=== PATIENT | female | born 1960 | race African-American/Black ===

== ENCOUNTER 2017-10-02 19:35 | Emergency (ER) | payer MEDICAID ==
[~2017-10-02] VITALS: Ht 165.1 cm; Wt 139.0 kg
[2017-10-03] MEDS ORDERED: ONDANSETRON 4MG ODT PO NR
[2017-10-03] MEDS ORDERED: KETOROLAC 30MG/ML VIAL IM NR
[2017-10-03 00:37] VITALS: BP 131/73
== END 2017-10-03 00:32 | disposition home or self-care (01) ==
LOC: ER 19:35
DX: S83.91XA Sprain of unspecified site of right knee, initial encounter (principal); E11.9 Type 2 diabetes mellitus without complications; E66.01 Morbid (severe) obesity due to excess calories; Z68.43 Body mass index [BMI] 50.0-59.9, adult; W01.0XXA Fall on same level from slipping, tripping and stumbling without subsequent striking against object, initial encounter; Y93.89 Activity, other specified; Y92.89 Other specified places as the place of occurrence of the external cause; Y99.8 Other external cause status
CPT/HCPCS: 73562; 96372; 99284; J1885; L1830; Q0162

== ENCOUNTER 2018-10-19 13:04 | Emergency (ER) | payer MEDICARE, MEDICAID ==
[~2018-10-19] VITALS: Ht 175.3 cm; Wt 142.0 kg
[2018-10-19] MEDS ORDERED: ONDANSETRON 4MG ODT PO ONE (15:15)
[2018-10-19] MEDS ORDERED: HYDROCODONE/ACETAMINOPHEN 5/325MG TABLET PO ONE (15:15)
[2018-10-19] MEDS ORDERED: KETOROLAC 60MG/2ML VIAL IM ONE (15:15)
[2018-10-19 17:40] VITALS: BP 168/70
== END 2018-10-19 18:00 | disposition home or self-care (01) ==
LOC: ER 13:04
DX: M25.561 Pain in right knee (principal); M79.651 Pain in right thigh; M54.30 Sciatica, unspecified side; E11.9 Type 2 diabetes mellitus without complications
CPT/HCPCS: 73562; 93971; 96372; 99284; J1885; Q0162; L1830

== ENCOUNTER 2021-12-31 22:18 | Emergency (ER) | payer MEDICARE, MEDICAID ==
[~2021-12-31] VITALS: Ht 172.7 cm; Wt 96.0 kg
[2021-12-31] MEDS ORDERED: ONDANSETRON 4MG ODT PO STA (23:48)
[2021-12-31] MEDS ORDERED: ACETAMINOPHEN WITH CODEINE 300/30MG TABLET PO STA (23:48)
[2022-01-01 00:51] LABS: BASOPHILS % 0.4 % (0.0-2.0); EOSINOPHILS % 0.5 % (0.0-5.0); HEMATOCRIT. 37.9 % (36.0-48.0); HEMOGLOBIN. 12.2 g/dL (12.0-16.0); LYMPHOCYTES % 11.7 % (20.0-50.0); MEAN CORPUSCULAR HEMOGLOBIN 28.4 pg (28.0-32.0); MEAN CORPUSCULAR VOLUME 88.5 fL (81.0-99.0); MEAN PLATELET VOLUME 9.2 fl (7.4-10.4); MONOCYTES % 3.7 % (2.0-8.0); NEUTROPHILS % 83.7 % (40.0-76.0); PLATELET 247 x1000/uL (130-400); RED BLOOD CELL COUNT 4.28 mill/uL (4.2-5.4); RED CELL DISTRIBUTION WIDTH 15.1 % (11.6-14.6)
[2022-01-01 01:01] LABS: CHLORIDE 111 mEq/L (98-107)
[2022-01-01 01:28] VITALS: BP 155/72
[2022-01-01] MEDS ORDERED: ONDA4TAB5 MT (01:30)
[2022-01-01] MEDS ORDERED: DOXY100T2 MT (01:30)
== END 2022-01-01 02:19 | disposition home or self-care (01) ==
LOC: ER 22:18
DX: R11.10 Vomiting, unspecified (principal); J18.9 Pneumonia, unspecified organism; E11.9 Type 2 diabetes mellitus without complications; M19.90 Unspecified osteoarthritis, unspecified site; Z20.822 Contact with and (suspected) exposure to COVID-19
CPT/HCPCS: 36415; 71045; 80048; 83690; 85025; 87426; 99284; Q0162

== ENCOUNTER 2022-08-28 14:14 | Emergency (ER) | payer MEDICARE, MEDICAID ==
[~2022-08-28] VITALS: Ht 165.1 cm; Wt 118.0 kg
[~2022-08-28 14:14] MED LIST: DOXY100T2 MT; ONDA4TAB5 MT
[2022-08-28 14:33] VITALS: BP 151/78
[2022-08-28] MEDS ORDERED: DEXAMETHASONE 10 MG/ML VIAL IV ONE (15:15)
[2022-08-28] MEDS ORDERED: IPRATROPIUM/ALBUTEROL 0.5-3(2.5)MG/3ML NEB HHN ONE (15:15)
[2022-08-28 15:19] LABS: BG BASE EXCESS 0.8 mmol/L (-2.0-2.0); BG CARBOXYHEMOGLOBIN 0.1 % (0.5-1.5); BG DEOXYHEMOGLOBIN 10.4 % (0.0-5.0); BG HCO3 ACT 25.4 mmol/L (22.0-26.0); BG OXYGEN SATURATION 89.6 % (92.0-98.5); BG OXYHEMOGLOBIN 89.5 % (94.0-97.0); BG PCO2 40.6 mmHg (35.0-45.0); BG PH 7.415 (7.350-7.450); BG SAMPLE SITE RIGHT RADIAL; BG TOTAL HEMOGLOBIN 9.3 g/dL (12.0-18.0); BG VENT MODE NASAL CANNULA
[2022-08-28 15:28] LABS: BASOPHILS % 0.6 % (0.0-2.0); EOSINOPHILS % 4.9 % (0.0-5.0); HEMATOCRIT. 32.6 % (36.0-48.0); HEMOGLOBIN. 10.4 g/dL (12.0-16.0); LYMPHOCYTES % 23.1 % (20.0-50.0); MEAN CORPUSCULAR HEMOGLOBIN 29.8 pg (28.0-32.0); MEAN CORPUSCULAR VOLUME 93.6 fL (81.0-99.0); MEAN PLATELET VOLUME 10.3 fl (7.4-10.4); MONOCYTES % 8.5 % (2.0-8.0); NEUTROPHILS % 62.9 % (40.0-76.0); PLATELET 203 x1000/uL (130-400); RED BLOOD CELL COUNT 3.48 mill/uL (4.2-5.4); RED CELL DISTRIBUTION WIDTH 15.9 % (11.6-14.6)
[2022-08-28 15:34] LABS: CHLORIDE 113 mEq/L (98-107)
[2022-08-28] MEDS ORDERED: P50 MT (18:41)
[2022-08-28] MEDS ORDERED: IBUP-2030 MT (18:41)
[2022-08-28] MEDS ORDERED: ALBU6.7H3 INH (18:41)
== END 2022-08-28 19:15 | disposition home or self-care (01) ==
LOC: ER 14:14
DX: R06.02 Shortness of breath (principal); I10 Essential (primary) hypertension; E11.9 Type 2 diabetes mellitus without complications; M19.90 Unspecified osteoarthritis, unspecified site
CPT/HCPCS: 36415; 36600; 71045; 80053; 82375; 82805; 83880; 84484; 85025; 93005; 96374; 99285; J1100

== ENCOUNTER 2023-09-28 09:06 | Inpatient (IN) | payer BC, MEDICAID, MEDICARE ==
[~2023-09-28] VITALS: Ht 165.1 cm; Wt 120.2 kg
[2023-09-28 09:05] VITALS: RESP 26
[~2023-09-28 09:06] MED LIST changes: +ALBU6.7H3 INH; +IBUP-2030 MT; +P50 MT
[2023-09-28] MEDS ORDERED: METHYLPREDNISOLONE SOD SUCC 125MG/2ML (ACT-O-VIAL) IV STA (09:09)
[2023-09-28] MEDS ORDERED: ALBUTEROL (0.083%) 2.5MG/3ML NEB HHN STA (09:09)
[2023-09-28] MEDS ORDERED: IPRATROPIUM BROMIDE (0.02%) 0.5MG/2.5ML NEB HHN STA (09:09)
[2023-09-28] MEDS ORDERED: MAGNESIUM 2 G PREMIX 50 ML IV STA (09:09)
[2023-09-28] MEDS ORDERED: FUROSEMIDE 20MG/2ML VIAL IVP ONE (09:45)
[2023-09-28] MEDS ORDERED: ENALAPRIL 2.5MG/2ML VIAL 2ML IV ONE (09:45)
[2023-09-28] MEDS ORDERED: FUROSEMIDE 40MG/4ML VIAL IVP NR (09:45)
[2023-09-28] MEDS ORDERED: ENALAPRIL 1.25MG/ML VIAL 1ML IV NR (09:45)
[2023-09-28 10:05] LABS: BASOPHILS % 0.5 % (0.0-2.0); EOSINOPHILS % 1.2 % (0.0-5.0); HEMATOCRIT. 31.1 % (36.0-48.0); HEMOGLOBIN. 9.3 g/dL (12.0-16.0); LYMPHOCYTES % 12.8 % (20.0-50.0); MEAN CORPUSCULAR HEMOGLOBIN 24.9 pg (28.0-32.0); MEAN CORPUSCULAR HGB CONC 29.9 g/dL (31.0-37.0); MEAN CORPUSCULAR VOLUME 83.2 fL (81.0-99.0); MONOCYTES % 5.8 % (2.0-8.0); NEUTROPHILS % 79.7 % (40.0-76.0); RED BLOOD CELL COUNT 3.74 mill/uL (4.2-5.4); RED CELL DISTRIBUTION WIDTH 30.5 % (11.6-14.6)
[2023-09-28 10:12] LABS: ALANINE AMINOTRANSFERASE 21 IU/L (10-49); ALBUMIN 3.6 g/dL (3.2-4.8); ASPARTATE AMINOTRANSFERASE 32 IU/L (<34); BILIRUBIN TOTAL 0.7 mg/dL (0.1-1.0); CALCIUM 8.4 mg/dL (8.7-10.4); CARBON DIOXIDE 28 mEq/L (21-32); CHLORIDE 112 mEq/L (98-107); CREATININE 0.7 mg/dL (0.6-1.0); GLUCOSE 119 mg/dL (70-105); POTASSIUM 3.7 mEq/L (3.5-5.1); SODIUM 148 mEq/L (136-145); UREA NITROGEN BLOOD 10 mg/dL (9-23)
[2023-09-28 10:15] LABS: DIFFERENTIAL COMMENT 1
[2023-09-28 10:45] VITALS: RESP 23
[2023-09-28] MEDS ORDERED: ALBUTEROL (0.083%) 2.5MG/3ML NEB ONE (10:46)
[2023-09-28] MEDS ORDERED: IPRATROPIUM BROMIDE (0.02%) 0.5MG/2.5ML NEB ONE (10:46)
[2023-09-28 10:55] LABS: PLATELET 205 x1000/uL (130-400)
[2023-09-28 11:03] LABS: BG BASE EXCESS 3.6 mmol/L (-2.0-2.0); BG DEOXYHEMOGLOBIN 4.1 % (0.0-5.0); BG FRACTION INSPIRED OXYGEN 100; BG HCO3 ACT 28.2 mmol/L (22.0-26.0); BG OXYGEN SATURATION 95.9 % (92.0-98.5); BG OXYHEMOGLOBIN 95.9 % (94.0-97.0); BG PCO2 42.8 mmHg (35.0-45.0); BG PH 7.436 (7.350-7.450); BG SAMPLE SITE RIGHT RADIAL; BG TOTAL HEMOGLOBIN 8.6 g/dL (12.0-18.0); BG TOTAL RESPIRATORY RATE 19 b/min; BG VENT MODE MASK - BIPAP
[2023-09-28] MEDS ORDERED: AZITHROMYCIN 500MG/250ML 250 ML IV ONE (11:30)
[2023-09-28] MEDS ORDERED: CEFTRIAXONE 1GM PREMIX 50 ML IV ONE (11:30)
[2023-09-28] MEDS ORDERED: ONDANSETRON HCL 4MG/2ML INJ IV PRN (14:30)
[2023-09-28] MEDS ORDERED: CLONIDINE 0.1MG TABLET PO PRN (14:30)
[2023-09-28] MEDS ORDERED: DOCUSATE SODIUM 100MG CAPSULE PO PRN (14:30)
[2023-09-28] MEDS: ACETAMINOPHEN 325MG TABLET PO PRN ×2 (16:09→23:58)
[2023-09-28] MEDS: IPRATROPIUM/ALBUTEROL 0.5-3(2.5)MG/3ML NEB HHN PRN (16:25)
[2023-09-28 16:26] VITALS: PULSE 124; RESP 28; O2SAT 100
[2023-09-28 18:17] LABS: TROPONIN I HIGH SENSITIVITY 15 ng/L (3.0-34)
[2023-09-28] MEDS: TRAZODONE HCL 50MG TABLET PO SCH (22:35)
[2023-09-28] MEDS: GABAPENTIN 300MG CAPSULE PO SCH (22:35)
[2023-09-28] MEDS: SERTRALINE HCL 50MG TABLET PO SCH (22:35)
[2023-09-28] MEDS ORDERED: TRAZODONE HCL 50MG TABLET PO SCH (22:40)
[2023-09-29] VITALS (8 sets, daily range): BP systolic 130–179; BP diastolic 69–84; PULSE 95–120; RESP 15–22; TEMP 97.3–98.7; O2SAT 99
[2023-09-29] MEDS ORDERED: METOPROLOL TARTRATE 50MG TABLET PO NR (04:30)
[2023-09-29] MEDS ORDERED: POTASSIUM CHLORIDE 20MEQ TABLET SR PO NR (04:30)
[2023-09-29] MEDS: IPRATROPIUM/ALBUTEROL 0.5-3(2.5)MG/3ML NEB HHN PRN (04:49)
[2023-09-29] MEDS: GABAPENTIN 300MG CAPSULE PO SCH ×3 (06:08→22:46)
[2023-09-29] MEDS: PANTOPRAZOLE 40MG DR TABLET PO SCH (06:08)
[2023-09-29 08:00] LABS: CREATINE KINASE MB FRACTION 1.4 ng/mL (0.5-3.6)
[2023-09-29] MEDS: APIXABAN 5 MG TABLET PO SCH ×2 (09:00→18:19)
[2023-09-29] MEDS ORDERED: METOPROLOL TARTRATE 50MG TABLET PO SCH (09:00)
[2023-09-29] MEDS: SERTRALINE HCL 50MG TABLET PO SCH (09:00)
[2023-09-29] MEDS ORDERED: FUROSEMIDE 20MG TABLET PO SCH (12:30)
[2023-09-29] MEDS: NIFEDIPINE XL 30MG TAB PO SCH (14:15)
[2023-09-29] MEDS: FUROSEMIDE 20MG/2ML VIAL IVP SCH ×2 (14:15→18:20)
[2023-09-29] MEDS: METHYLPREDNISOLONE SOD SUCC 40MG/ML (ACT-O-VIAL) IV SCH ×2 (14:34→18:19)
[2023-09-29] MEDS: PIPERACILLIN/TAZOBACTAM 3.375 G in DEXTROSE 5% WATER 50 ML IV SCH ×2 (15:20→22:46)
[2023-09-29] MEDS ORDERED: GABA800T97 PO (17:51)
[2023-09-29] MEDS ORDERED: MELO-106 PO (17:51)
[2023-09-29] MEDS ORDERED: BENZ100C86 PO (17:51)
[2023-09-29] MEDS ORDERED: P20 PO (17:51)
[2023-09-29] MEDS ORDERED: SPIR25TA6 PO (17:51)
[2023-09-29] MEDS ORDERED: IBUP-2030 PO (17:51)
[2023-09-29] MEDS ORDERED: SERT-112 PO (17:51)
[2023-09-29] MEDS ORDERED: ASPI500T19 PO (17:51)
[2023-09-29] MEDS ORDERED: CYCL10TA21 PO (17:51)
[2023-09-29] MEDS ORDERED: APIX5TAB PO (17:51)
[2023-09-29] MEDS ORDERED: METO-539 PO (17:51)
[2023-09-29] MEDS ORDERED: FURO20TA4 PO (17:51)
[2023-09-29] MEDS ORDERED: NAPR220T66 PO (17:51)
[2023-09-29] MEDS ORDERED: ONDA4TAB50 PO (17:51)
[2023-09-29] MEDS ORDERED: LISI10TA26 PO (17:51)
[2023-09-29] MEDS ORDERED: ALBU6.7H15 INH (17:51)
[2023-09-29 18:58] LABS: *AMPHETAMINES SCREEN URINE NEGATIVE (NEGATIVE); *BARBITURATES SCREEN URINE NEGATIVE (NEGATIVE); *BENZODIAZEPINES SCREEN URINE NEGATIVE (NEGATIVE); *COCAINE SCREEN URINE NEGATIVE (NEGATIVE); CANNABINOID URINE SCREEN NEGATIVE (NEGATIVE); METHADONE URINE SCREEN Neg (NEGATIVE); OPIATES URINE SCREEN NEGATIVE (NEGATIVE); PHENCYCLIDINE URINE SCREEN NEGATIVE (NEGATIVE)
[2023-09-29 21:02] LABS: HEMATOCRIT. 37.2 % (36.0-48.0); HEMOGLOBIN. 10.9 g/dL (12.0-16.0); MEAN CORPUSCULAR HEMOGLOBIN 24.6 pg (28.0-32.0); MEAN CORPUSCULAR HGB CONC 29.2 g/dL (31.0-37.0); MEAN CORPUSCULAR VOLUME 84.3 fL (81.0-99.0); MEAN PLATELET VOLUME 10.3 fl (7.4-10.4); PLATELET 234 x1000/uL (130-400); RED BLOOD CELL COUNT 4.41 mill/uL (4.2-5.4); RED CELL DISTRIBUTION WIDTH 30.5 % (11.6-14.6); WHITE BLOOD COUNT 8.7 x1000/uL (4.5-11.0)
[2023-09-29 21:05] LABS: DIFFERENTIAL COMMENT 1
[2023-09-29] MEDS: TRAZODONE HCL 50MG TABLET PO SCH (21:05)
[2023-09-29] MEDS: CARVEDILOL 3.125 MG TABLET PO SCH (21:08)
[2023-09-29 21:22] LABS: CALCIUM 9.3 mg/dL (8.7-10.4); CARBON DIOXIDE 28 mEq/L (21-32); CHLORIDE 107 mEq/L (98-107); CHOLESTEROL 117 mg/dL (<200); CREATININE 0.9 mg/dL (0.6-1.0); GLUCOSE 231 mg/dL (70-105); HDL CHOLESTEROL 51 mg/dL (>65); LDL CHOLESTEROL 77 mg/dL (5-100); POTASSIUM 4.3 mEq/L (3.5-5.1); SODIUM 144 mEq/L (136-145); TRIGLYCERIDE 82 mg/dL (0-150); UREA NITROGEN BLOOD 12 mg/dL (9-23)
[2023-09-29 21:37] LABS: ANISOCYTOSIS 3+; PLATELET ESTIMATE NORMAL
[2023-09-30] VITALS: BP 130/68; PULSE 99; RESP 14; TEMP 98.6
[2023-09-30 04:00] VITALS: BP 157/90; PULSE 114; RESP 17; TEMP 97.3
[2023-09-30] MEDS: METHYLPREDNISOLONE SOD SUCC 40MG/ML (ACT-O-VIAL) IV SCH ×2 (06:35→16:33)
[2023-09-30] MEDS: PANTOPRAZOLE 40MG DR TABLET PO SCH (06:35)
[2023-09-30] MEDS: PIPERACILLIN/TAZOBACTAM 3.375 G in DEXTROSE 5% WATER 50 ML IV SCH ×3 (06:35→21:20)
[2023-09-30] MEDS: GABAPENTIN 300MG CAPSULE PO SCH ×3 (06:36→21:20)
[2023-09-30] MEDS: ACETAMINOPHEN 325MG TABLET PO PRN (06:47)
[2023-09-30] MEDS: FUROSEMIDE 20MG/2ML VIAL IVP SCH (06:47)
[2023-09-30 08:00] VITALS: BP 162/100; PULSE 104; RESP 21; TEMP 97.7
[2023-09-30] MEDS: APIXABAN 5 MG TABLET PO SCH ×2 (09:07→16:33)
[2023-09-30] MEDS: CARVEDILOL 3.125 MG TABLET PO SCH (09:07)
[2023-09-30] MEDS: SERTRALINE HCL 50MG TABLET PO SCH (09:08)
[2023-09-30] MEDS: NIFEDIPINE XL 30MG TAB PO SCH (09:08)
[2023-09-30] MEDS ORDERED: METOLAZONE 2.5MG TABLET PO NR (11:30)
[2023-09-30 12:00] VITALS: BP 150/67; PULSE 106; RESP 18; TEMP 98.2
[2023-09-30] MEDS ORDERED: CARVEDILOL 6.25 MG TABLET PO NR (15:00)
[2023-09-30 16:00] VITALS: BP 156/96; PULSE 98; RESP 18; TEMP 97.9
[2023-09-30] MEDS: FUROSEMIDE 100MG/10ML VIAL IVP SCH (16:33)
[2023-09-30 20:00] VITALS: BP 150/94; PULSE 105; RESP 25; TEMP 97.6
[2023-09-30] MEDS: TRAZODONE HCL 50MG TABLET PO SCH (21:20)
[2023-09-30] MEDS: CARVEDILOL 12.5MG TABLET PO SCH (21:20)
[2023-10-01] VITALS: BP 147/86; PULSE 96; RESP 12; TEMP 97.9
[2023-10-01 04:00] VITALS: BP 144/70; PULSE 96; RESP 13; TEMP 98.3
[2023-10-01] MEDS: GABAPENTIN 300MG CAPSULE PO SCH ×3 (06:08→21:58)
[2023-10-01] MEDS: PIPERACILLIN/TAZOBACTAM 3.375 G in DEXTROSE 5% WATER 50 ML IV SCH ×3 (06:08→21:49)
[2023-10-01] MEDS: METHYLPREDNISOLONE SOD SUCC 40MG/ML (ACT-O-VIAL) IV SCH ×2 (06:08→18:49)
[2023-10-01 07:59] LABS: CALCIUM 9.5 mg/dL (8.7-10.4); CARBON DIOXIDE 34 mEq/L (21-32); CHLORIDE 104 mEq/L (98-107); CREATININE 0.7 mg/dL (0.6-1.0); GLUCOSE 121 mg/dL (70-105); POTASSIUM 3.2 mEq/L (3.5-5.1); SODIUM 146 mEq/L (136-145); UREA NITROGEN BLOOD 15 mg/dL (9-23)
[2023-10-01 08:00] VITALS: BP 145/75; PULSE 97; RESP 18; TEMP 98
[2023-10-01] MEDS ORDERED: NIFEDIPINE XL 60MG TAB PO SCH (09:00)
[2023-10-01] MEDS: FUROSEMIDE 100MG/10ML VIAL IVP SCH ×2 (09:47→18:49)
[2023-10-01] MEDS: FAMOTIDINE 20MG TABLET PO SCH ×2 (09:47→18:50)
[2023-10-01] MEDS: APIXABAN 5 MG TABLET PO SCH ×2 (09:47→18:49)
[2023-10-01] MEDS: SERTRALINE HCL 50MG TABLET PO SCH (09:47)
[2023-10-01] MEDS: CARVEDILOL 12.5MG TABLET PO SCH ×2 (09:48→21:00)
[2023-10-01] MEDS: ACETAMINOPHEN 325MG TABLET PO PRN (09:54)
[2023-10-01 12:00] VITALS: BP 138/78; PULSE 99; RESP 18; RESP 20; TEMP 97.8
[2023-10-01] MEDS ORDERED: CARVEDILOL 12.5MG TABLET PO SCH (12:00)
[2023-10-01] MEDS: AMIODARONE HCL 200 MG TABLET PO SCH ×2 (14:02→21:50)
[2023-10-01 16:00] VITALS: BP_SYST 113; BP_SYST 157; BP_DIAS 60; BP_DIAS 88; PULSE 100; PULSE 112; RESP 16; TEMP 97.8
[2023-10-01] MEDS ORDERED: DILTIAZEM HCL 30MG TABLET PO SCH (16:45)
[2023-10-01] MEDS ORDERED: AMIODARONE 150MG/100ML PREMIX 100 ML IV NR (17:30)
[2023-10-01 18:32] LABS: CALCIUM 9.1 mg/dL (8.7-10.4); CARBON DIOXIDE 33 mEq/L (21-32); CHLORIDE 103 mEq/L (98-107); GLUCOSE 154 mg/dL (70-105); POTASSIUM 3.7 mEq/L (3.5-5.1); SODIUM 143 mEq/L (136-145); UREA NITROGEN BLOOD 16 mg/dL (9-23)
[2023-10-01] MEDS: DILTIAZEM HCL 60MG TABLET PO SCH ×2 (18:49→21:58)
[2023-10-01 20:00] VITALS: BP_SYST 136; BP_SYST 146; BP_DIAS 67; BP_DIAS 72; PULSE 98; RESP 15; RESP 18; TEMP 98.1
[2023-10-01] MEDS: TRAZODONE HCL 50MG TABLET PO SCH (21:55)
[2023-10-02] VITALS: BP 146/67; PULSE 69; RESP 18
[2023-10-02 04:25] VITALS: BP 124/80; PULSE 64; RESP 19; TEMP 98.2
[2023-10-02] MEDS: GABAPENTIN 300MG CAPSULE PO SCH ×2 (06:46→15:07)
[2023-10-02] MEDS: DILTIAZEM HCL 60MG TABLET PO SCH ×2 (06:46→15:07)
[2023-10-02] MEDS: PIPERACILLIN/TAZOBACTAM 3.375 G in DEXTROSE 5% WATER 50 ML IV SCH ×2 (06:46→15:08)
[2023-10-02] MEDS: METHYLPREDNISOLONE SOD SUCC 40MG/ML (ACT-O-VIAL) IV SCH ×2 (06:46→18:02)
[2023-10-02 08:00] VITALS: BP 123/67; PULSE 64; RESP 14; TEMP 98.4
[2023-10-02] MEDS: AMIODARONE HCL 200 MG TABLET PO SCH (09:03)
[2023-10-02] MEDS: CARVEDILOL 12.5MG TABLET PO SCH (09:04)
[2023-10-02] MEDS: SERTRALINE HCL 50MG TABLET PO SCH (09:06)
[2023-10-02] MEDS: FAMOTIDINE 20MG TABLET PO SCH ×2 (09:06→18:02)
[2023-10-02] MEDS: APIXABAN 5 MG TABLET PO SCH ×2 (09:07→18:02)
[2023-10-02] MEDS: FUROSEMIDE 100MG/10ML VIAL IVP SCH ×2 (09:07→18:02)
[2023-10-02 12:00] VITALS: BP 116/59; PULSE 65; RESP 16; TEMP 98.4
[2023-10-02 14:38] VITALS: BP 118/66; PULSE 100; TEMP 98.2; O2SAT 99
[2023-10-02 16:00] VITALS: BP 118/63; PULSE 122; RESP 28; TEMP 97.9
== END 2023-10-02 19:00 | disposition home health service (06) | DRG 291 ==
LOC: ER 09:06 → EDBEDREQSVC 12:20 → MICUSO 22:39 → 3WST 23:18
PROVIDERS: ADMIT Internal Medicine; ATTEND Internal Medicine
PROC: 5A09357 Assistance with Respiratory Ventilation, Less than 24 Consecutive Hours, Continuous Positive Airway Pressure (ICD-10-PCS; principal; 2023-09-28)
DX: I11.0 Hypertensive heart disease with heart failure (principal); I50.33 Acute on chronic diastolic (congestive) heart failure; E66.2 Morbid (severe) obesity with alveolar hypoventilation; J44.1 Chronic obstructive pulmonary disease with (acute) exacerbation; Z68.42 Body mass index [BMI] 45.0-49.9, adult; I48.92 Unspecified atrial flutter; I48.91 Unspecified atrial fibrillation; I44.7 Left bundle-branch block, unspecified; Z20.822 Contact with and (suspected) exposure to COVID-19; D64.9 Anemia, unspecified; R09.02 Hypoxemia; E11.9 Type 2 diabetes mellitus without complications; E87.6 Hypokalemia; I87.2 Venous insufficiency (chronic) (peripheral); T14.8XXA Other injury of unspecified body region, initial encounter; Z79.899 Other long term (current) drug therapy; X58.XXXA Exposure to other specified factors, initial encounter; Y93.89 Activity, other specified; Y92.89 Other specified places as the place of occurrence of the external cause; Y99.8 Other external cause status
CPT/HCPCS: 36415; 36600; 71045; 76604; 80048; 80053; 80061; 80305; 82375; 82553; 82805; 83880; 84439; 84443; 84484; 85025; 87426; 87804; 93005; 93306; 93880; 93970; 94640; 94644; 94660; 99291; C9803; J0282; J0456; J0696; J1940; J2543; J2920; J2930; J3475; J3490; J7060

== ENCOUNTER 2024-12-03 17:27 | Inpatient (IN) | payer MEDICARE ==
[~2024-12-03] VITALS: Ht 165.1 cm; Wt 98.4 kg
[~2024-12-03 17:27] MED LIST changes: -ALBU6.7H3 INH; +COLC0.6T66 PO; -DOXY100T2 MT; +FERR-71 MT; +FERR325T6 PO; +FURO20TA4 PO; +GABA800T97 PO; -IBUP-2030 MT; +LEVO750T68 MT; +LISI10TA26 PO; +METO-539 PO; +METO25TA6 MT; -ONDA4TAB5 MT; -P50 MT; +POTA-203 PO; +PROT40 MT; +SERT-112 PO; +SPIR25TA6 PO; +TRAZ-251 PO
[2024-12-03 22:10] LABS: BASOPHILS % 0.6 % (0.0-2.0); DIFFERENTIAL COMMENT 0; EOSINOPHILS % 0.6 % (0.0-5.0); HEMATOCRIT. 30.5 % (36.0-48.0); HEMOGLOBIN. 9.2 g/dL (12.0-16.0); LYMPHOCYTES % 12.8 % (20.0-50.0); MEAN CORPUSCULAR HEMOGLOBIN 26.1 pg (28.0-32.0); MEAN CORPUSCULAR HGB CONC 30.3 g/dL (31.0-37.0); MEAN CORPUSCULAR VOLUME 86.3 fL (81.0-99.0); MEAN PLATELET VOLUME 9.9 fl (7.4-10.4); MONOCYTES % 7.2 % (2.0-8.0); NEUTROPHILS % 78.8 % (40.0-76.0); PLATELET 133 x1000/uL (130-400); RED BLOOD CELL COUNT 3.53 mill/uL (4.2-5.4); RED CELL DISTRIBUTION WIDTH 21.3 % (11.6-14.6); WHITE BLOOD COUNT 8.9 x1000/uL (4.5-11.0)
[2024-12-03 22:12] LABS: CHLORIDE 114 mEq/L (98-107); POTASSIUM 3.7 mEq/L (3.5-5.1); SODIUM 147 mEq/L (136-145)
[2024-12-03 22:13] LABS: CARBON DIOXIDE 22 mEq/L (21-32)
[2024-12-03 22:14] LABS: CALCIUM 8.4 mg/dL (8.7-10.4)
[2024-12-03 22:18] LABS: CREATININE 0.6 mg/dL (0.6-1.0); GLUCOSE 76 mg/dL (70-105)
[2024-12-03 22:19] LABS: UREA NITROGEN BLOOD 12 mg/dL (9-23)
[2024-12-03 22:20] LABS: TROPONIN I HIGH SENSITIVITY 8 ng/L (3.0-34)
[2024-12-03] MEDS: ACETAMINOPHEN 500MG TABLET PO ONE (22:36)
[2024-12-03] MEDS: KETOROLAC 15MG/ML VIAL IM ONE (22:41)
[2024-12-03] MEDS: FUROSEMIDE 40MG/4ML VIAL IVP ONE (23:30)
[2024-12-04] MEDS: FUROSEMIDE 40MG/4ML VIAL IVP NR (02:50)
[2024-12-04 03:52] VITALS: BP 144/76; PULSE 102; RESP 20; TEMP 36.5
[2024-12-04 04:00] VITALS: BP 174/90; PULSE 122; RESP 20; TEMP 36.9; O2SAT 97
[2024-12-04] MEDS: METOPROLOL TARTRATE 50MG TABLET PO NR (06:36)
[2024-12-04 08:00] VITALS: BP 154/83; PULSE 78; RESP 18; TEMP 36.4; O2SAT 93
[2024-12-04 08:09] LABS: PROTHROMBIN TIME 11.6 sec (9.6-11.0)
[2024-12-04 08:11] LABS: BASOPHILS % 0.3 % (0.0-2.0); CARBON DIOXIDE 27 mEq/L (21-32); CHLORIDE 109 mEq/L (98-107); DIFFERENTIAL COMMENT 0; EOSINOPHILS % 0.4 % (0.0-5.0); HEMATOCRIT. 34.8 % (36.0-48.0); HEMOGLOBIN. 10.6 g/dL (12.0-16.0); LYMPHOCYTES % 9.1 % (20.0-50.0); MEAN CORPUSCULAR HEMOGLOBIN 25.8 pg (28.0-32.0); MEAN CORPUSCULAR HGB CONC 30.3 g/dL (31.0-37.0); MEAN CORPUSCULAR VOLUME 84.9 fL (81.0-99.0); MEAN PLATELET VOLUME 10.1 fl (7.4-10.4); MONOCYTES % 5.3 % (2.0-8.0); NEUTROPHILS % 84.9 % (40.0-76.0); PLATELET 187 x1000/uL (130-400); POTASSIUM 5.2 mEq/L (3.5-5.1); RED CELL DISTRIBUTION WIDTH 21.9 % (11.6-14.6); SODIUM 146 mEq/L (136-145); WHITE BLOOD COUNT 8.5 x1000/uL (4.5-11.0)
[2024-12-04 08:12] LABS: CALCIUM 8.9 mg/dL (8.7-10.4)
[2024-12-04 08:17] LABS: CREATININE 0.7 mg/dL (0.6-1.0); GLUCOSE 67 mg/dL (70-105); UREA NITROGEN BLOOD 13 mg/dL (9-23)
[2024-12-04 08:18] LABS: TROPONIN I HIGH SENSITIVITY 10 ng/L (3.0-34)
[2024-12-04] MEDS: POTASSIUM CHLORIDE 20MEQ TABLET SR PO SCH (09:19)
[2024-12-04] MEDS: METOPROLOL TARTRATE 50MG TABLET PO SCH (09:20)
[2024-12-04] MEDS: FUROSEMIDE 40MG TABLET PO SCH (09:21)
[2024-12-04] MEDS: ENOXAPARIN 100MG/ML SYR SUBCUT SCH (09:25)
[2024-12-04] MEDS: PANTOPRAZOLE 40MG DR TABLET PO SCH (09:31)
[2024-12-04 12:00] VITALS: BP 159/90; PULSE 55; RESP 18; TEMP 35.9; O2SAT 99
[2024-12-04] MEDS: HYDRALAZINE HCL 50MG TABLET PO SCH (14:00)
[2024-12-04 16:00] VITALS: BP 142/78; PULSE 82; RESP 15; TEMP 36.7; O2SAT 97
[2024-12-04] MEDS: SERTRALINE HCL 100MG TABLET PO SCH (17:17)
[2024-12-04] MEDS: FUROSEMIDE 40MG/4ML VIAL IVP SCH (17:27)
[2024-12-04 20:00] VITALS: BP 132/69; PULSE 94; RESP 22; TEMP 36.6; O2SAT 96
[2024-12-05] VITALS: BP 144/69; PULSE 99; RESP 18; TEMP 36.8; O2SAT 97
[2024-12-05 04:00] VITALS: BP 155/105; PULSE 95; RESP 18; TEMP 36.5; O2SAT 94
[2024-12-05 07:12] LABS: CHLORIDE 107 mEq/L (98-107); POTASSIUM 3.7 mEq/L (3.5-5.1); SODIUM 145 mEq/L (136-145)
[2024-12-05 07:13] LABS: CARBON DIOXIDE 27 mEq/L (21-32)
[2024-12-05 07:14] LABS: CALCIUM 8.8 mg/dL (8.7-10.4)
[2024-12-05 07:16] LABS: TROPONIN I HIGH SENSITIVITY 8 ng/L (3.0-34)
[2024-12-05 07:18] LABS: CREATININE 0.7 mg/dL (0.6-1.0); GLUCOSE 71 mg/dL (70-105)
[2024-12-05 07:19] LABS: UREA NITROGEN BLOOD 14 mg/dL (9-23)
[2024-12-05 08:00] VITALS: BP 159/89; PULSE 81; RESP 20; TEMP 36.7; O2SAT 96
[2024-12-05] MEDS: HYDROCODONE/ACETAMINOPHEN 5/325MG TABLET PO PRN (09:18)
[2024-12-05 09:34] LABS: BASOPHILS % 0.2 % (0.0-2.0); EOSINOPHILS % 0.7 % (0.0-5.0); HEMATOCRIT. 29.6 % (36.0-48.0); HEMOGLOBIN. 9.1 g/dL (12.0-16.0); MEAN CORPUSCULAR HEMOGLOBIN 25.7 pg (28.0-32.0); MEAN CORPUSCULAR HGB CONC 30.7 g/dL (31.0-37.0); MEAN CORPUSCULAR VOLUME 83.6 fL (81.0-99.0); MEAN PLATELET VOLUME 10.1 fl (7.4-10.4); MONOCYTES % 7.4 % (2.0-8.0); NEUTROPHILS % 77.7 % (40.0-76.0); PLATELET 198 x1000/uL (130-400); RED BLOOD CELL COUNT 3.54 mill/uL (4.2-5.4); RED CELL DISTRIBUTION WIDTH 22.5 % (11.6-14.6); WHITE BLOOD COUNT 7.7 x1000/uL (4.5-11.0)
[2024-12-05 09:45] LABS: DIFFERENTIAL COMMENT 1
[2024-12-05 09:46] LABS: ADD RBC MORPHOLOGY YES
[2024-12-05 12:00] VITALS: BP 159/89; PULSE 81; RESP 20; TEMP 36.7; O2SAT 96
[2024-12-05] MEDS: MAGNESIUM 1 G PREMIX 100 ML IV NR (14:13)
[2024-12-05] MEDS: HYDRALAZINE HCL 25MG TABLET PO SCH (14:14)
[2024-12-05 16:00] VITALS: BP 125/68; PULSE 65; RESP 20; TEMP 36.1; O2SAT 96
[2024-12-05 20:00] VITALS: BP 135/70; PULSE 81; RESP 20; TEMP 36.3; O2SAT 99
[2024-12-05 21:10] LABS: ANISOCYTOSIS 2+; PLATELET ESTIMATE NORMAL
[2024-12-06] VITALS: BP 141/82; PULSE 75; RESP 18; TEMP 36.3; O2SAT 92
[2024-12-06 04:00] VITALS: BP_SYST 140; BP_SYST 98; BP_DIAS 105; BP_DIAS 52; PULSE 111; PULSE 77; RESP 19; RESP 22; TEMP 36.2; TEMP 36.3; O2SAT 95; O2SAT 99
[2024-12-06 08:00] VITALS: BP 127/66; PULSE 78; RESP 20; TEMP 36.2; O2SAT 93
[2024-12-06] MEDS ORDERED: AMLODIPINE 5MG TABLET PO SCH (11:15)
[2024-12-06 12:00] VITALS: BP 131/77; PULSE 72; RESP 17; TEMP 36.7; O2SAT 97
[2024-12-06] MEDS: SPIRONOLACTONE 25MG TABLET PO SCH (12:00)
[2024-12-06] MEDS: HYDRALAZINE HCL 50MG TABLET PO SCH (13:22)
[2024-12-06] MEDS: SILDENAFIL CITRATE 20MG TABLET PO SCH (13:22)
[2024-12-06 16:00] VITALS: BP 113/64; PULSE 86; RESP 20; TEMP 36.6; O2SAT 95
[2024-12-06 17:27] LABS: BASOPHILS % 0.3 % (0.0-2.0); EOSINOPHILS % 1.2 % (0.0-5.0); HEMATOCRIT. 29.5 % (36.0-48.0); LYMPHOCYTES % 17.2 % (20.0-50.0); MEAN CORPUSCULAR HEMOGLOBIN 25.5 pg (28.0-32.0); MEAN CORPUSCULAR HGB CONC 30.4 g/dL (31.0-37.0); MEAN CORPUSCULAR VOLUME 83.7 fL (81.0-99.0); MEAN PLATELET VOLUME 9.9 fl (7.4-10.4); MONOCYTES % 6.6 % (2.0-8.0); NEUTROPHILS % 74.7 % (40.0-76.0); PLATELET 191 x1000/uL (130-400); RED BLOOD CELL COUNT 3.52 mill/uL (4.2-5.4); RED CELL DISTRIBUTION WIDTH 22.6 % (11.6-14.6); WHITE BLOOD COUNT 6.8 x1000/uL (4.5-11.0)
[2024-12-06 17:28] LABS: DIFFERENTIAL COMMENT 1
[2024-12-06 17:29] LABS: CHLORIDE 109 mEq/L (98-107); POTASSIUM 3.7 mEq/L (3.5-5.1); SODIUM 144 mEq/L (136-145)
[2024-12-06 17:30] LABS: CALCIUM 8.8 mg/dL (8.7-10.4); CARBON DIOXIDE 28 mEq/L (21-32)
[2024-12-06 17:35] LABS: CREATININE 0.8 mg/dL (0.6-1.0); GLUCOSE 99 mg/dL (70-105); UREA NITROGEN BLOOD 19 mg/dL (9-23)
[2024-12-06 20:00] VITALS: BP 130/69; PULSE 81; RESP 20; TEMP 36.2; O2SAT 96
[2024-12-06] MEDS: ATORVASTATIN CALCIUM 20MG TABLET PO SCH (20:47)
[2024-12-06] MEDS: MORPHINE SULFATE 2 MG/ML INJ (NOT FOR IM USE) IV PRN (20:49)
[2024-12-07] VITALS: BP 152/57; PULSE 84; RESP 20; TEMP 36.4; O2SAT 96
[2024-12-07 04:00] VITALS: BP 177/77; PULSE 85; RESP 20; TEMP 36.2; O2SAT 97
[2024-12-07 07:00] VITALS: BP 144/62
[2024-12-07 07:02] LABS: CHLORIDE 106 mEq/L (98-107); POTASSIUM 3.3 mEq/L (3.5-5.1); SODIUM 145 mEq/L (136-145)
[2024-12-07 07:03] LABS: BASOPHILS % 0.4 % (0.0-2.0); CALCIUM 8.9 mg/dL (8.7-10.4); CARBON DIOXIDE 33 mEq/L (21-32); HEMATOCRIT. 30.3 % (36.0-48.0); HEMOGLOBIN. 9.6 g/dL (12.0-16.0); MEAN CORPUSCULAR HGB CONC 31.6 g/dL (31.0-37.0); MEAN CORPUSCULAR VOLUME 82.4 fL (81.0-99.0); MEAN PLATELET VOLUME 9.9 fl (7.4-10.4); MONOCYTES % 7.6 % (2.0-8.0); PLATELET 190 x1000/uL (130-400); RED BLOOD CELL COUNT 3.67 mill/uL (4.2-5.4); WHITE BLOOD COUNT 5.8 x1000/uL (4.5-11.0)
[2024-12-07 07:08] LABS: CREATININE 0.6 mg/dL (0.6-1.0); GLUCOSE 64 mg/dL (70-105); UREA NITROGEN BLOOD 18 mg/dL (9-23)
[2024-12-07 07:16] LABS: DIFFERENTIAL COMMENT 1
[2024-12-07] MEDS: ASPIRIN 81MG TABLET PO SCH (08:56)
[2024-12-07] MEDS: POTASSIUM CHLORIDE 20MEQ/PACKET PO SCH (13:00)
[2024-12-07] MEDS ORDERED: NALOXONE HCL 0.4MG/ML VIAL IV PRN (13:00)
[2024-12-07] MEDS ORDERED: APIX5TAB MT (15:57)
[2024-12-07] MEDS ORDERED: ATOR20TA PO (15:57)
[2024-12-07] MEDS ORDERED: ASPI-1160 PO (15:57)
[2024-12-07] MEDS ORDERED: DILT30TA3 PO (15:57)
[2024-12-07] MEDS ORDERED: REV20 PO (15:57)
[2024-12-07 16:00] VITALS: BP 148/72; PULSE 104; RESP 20; TEMP 36.6
[2024-12-07] MEDS: DILTIAZEM HCL 30MG TABLET PO SCH (17:19)
[2024-12-07 17:33] VITALS: BP 146/72; PULSE 104; TEMP 97.4; O2SAT 100
== END 2024-12-07 18:06 | disposition home or self-care (01) | DRG 291 ==
LOC: ER 17:27 → 8WST 12-04 00:43 → EDBEDREQTM 12-04 00:47 → EDBEDREQ 12-04 00:47 → EDBEDREQDT 12-04 00:47
PROVIDERS: ADMIT Internal Medicine; ATTEND Internal Medicine
DX: I11.0 Hypertensive heart disease with heart failure (principal); I50.33 Acute on chronic diastolic (congestive) heart failure; I48.20 Chronic atrial fibrillation, unspecified; E66.9 Obesity, unspecified; Z68.38 Body mass index [BMI] 38.0-38.9, adult; D64.9 Anemia, unspecified; K21.9 Gastro-esophageal reflux disease without esophagitis; G62.9 Polyneuropathy, unspecified; E83.42 Hypomagnesemia; I87.2 Venous insufficiency (chronic) (peripheral); I07.1 Rheumatic tricuspid insufficiency; E87.5 Hyperkalemia; F32.A Depression, unspecified; Z79.01 Long term (current) use of anticoagulants; Z99.3 Dependence on wheelchair; Z79.899 Other long term (current) drug therapy; Z91.199 Patient's noncompliance with other medical treatment and regimen due to unspecified reason
CPT/HCPCS: 36415; 71045; 80048; 83735; 83880; 84484; 85025; 93005; 93306; 93970; 97162; 99285; C1893; J1650; J1885; J1940; J2270; J3475